=== PATIENT | male | born 1950 | race Caucasian/White ===

== ENCOUNTER 2020-11-28 23:44 | Emergency (ER) | payer MEDICARE, OTHER ==
[~2020-11-28] VITALS: Ht 182.9 cm; Wt 105.9 kg
[2020-11-29] MEDS ORDERED: MORPHINE SULFATE 4 MG/ML DISP.SYRIN. IV ONE
[2020-11-29] MEDS ORDERED: IV RINGERS SOLUTION,LACTATED 1,000 ML IV ONE
[2020-11-29] MEDS ORDERED: ONDANSETRON PF 4 MG/2 ML VIAL. IVP ONE
--- NOTE | 2020-11-29 00:12 | PHYS DOC ---
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 States has been going on approximately 2 days. Also endorses some generalized abdominal discomfort, 5 out of 10, dull and achy in nature as well as chronic back pain, 6 out of 10, dull and achy in nature. States has had a decreased appetite over the last couple of days. States he only makes a tiny bit of urine but has having normal bowel movement today with no blood in it. Denies any recent traumas, travels, known ill contacts, fevers, other Covid/flu/cold symptoms. Review of Systems Review of Systems Review of systems otherwise unremarkable except noted in HPI Physical Exam Physical Exam Constitutional: Well developed, well nourished, respiratory distress, appears ill. [] HENT: Normocephalic, atraumatic, oropharynx dry no oral exudates, nose normal. [] Eyes: PERRLA, conjunctiva normal, no discharge. [] Neck: Normal range of motion, no tenderness, Cardiovascular: Sinus bradycardia Lungs & Thorax: Bilateral, global scattered mild rhonchi with overall decreased air movement, mild end expiratory wheeze and increased work of breathing Abdomen: soft, generalized tenderness, no masses, no pulsatile masses. [] Skin: Warm, dry, no erythema, no rash. [] Back: no CVA tenderness. [] Extremities: Patient with right BKA. Neurologic: Alert and oriented X 3, no focal deficits noted. [] Psychologic: Affect normal, judgement normal, mood normal. [] EKG EKG EKG with a rate of 80, QRS of 126, QTc of 451, irregular rhythm (patient on ICD,), no STEMI [] Radiology/Procedures Radiology/Procedures [CT Chest: Left chest wall pacer/AICD. Right chest wall catheter device extending into the SVC. The heart is enlarged. Small pericardial effusion. Extensive calcific atherosclerosis with severe coronary artery involvement as well as relatively extensive involvement of the partially imaged carotid arteries. The thoracic aorta is nonaneurysmal. Main pulmonary artery caliber is within the broad range of normal at 3 cm. Aortic and mitral annular mineralization. Small amount of gas within the right atrium is favored iatrogenic. No definitive pathologically enlarged mediastinal or hilar lymph nodes noting motion and the lack of contrast. No apparent esophageal abnormality but not fully assessed. Near complete collapse of the left lung with only a small amount of aerated lung at the anterior left upper lobe. Large left pleural effusion measuring simple density. Small pleural effusion on the right the density of which is difficult to assess. Mild atelectasis on the right. Limited assessment for a mild superimposed infiltrate. A few punctate pulmonary nodules on the right, image 57 series 2, measuring no more than 3 mm. No axillary lymphadenopathy. Periclavicular lymph nodes are subcentimeter in size. Left more so than right mild gynecomastia. Body wall edema. Chronic height loss at T3 with fusion across the T3-T4 disc space. Diffuse idiopathic skeletal hyperostosis. Multilevel spondylosis to include the partially imaged cervical spine. Scattered osseous neural foraminal stenosis appearing greatest on the left at C5-C6 and on the left more so than right at T3-T4. Limited assessment for central canal stenosis. CT Abdomen/Pelvis: Cirrhotic liver. Limited assessment for a hepatic mass. Gallstone filled gallbladder. Assessment for acute cholecystitis. No overt ductal dilatation. Fatty infiltration of the pancreas. No localized peripancreatic edema or fluid collection. Mild splenomegaly. No adrenal gland mass. Incompletely characterized exophytic focus off the inferior pole the right kidney measuring up to approximately 2.6 cm. The internal density is around 13 Hounsfield units suggestive of a cyst. No hydronephrosis. Circumferential wall thickening of the urinary bladder with mild haziness of the pericystic fat. The prostate measures 4.1 cm transverse. Moderate degree of constipation. Normal appendix. Moderate distention of the stomach. No gastric wall emphysema. Long segment mild dilatation of small bowel but there is no transitioning to collapse to confirm a distal obstruction. Limited assessment for wall thickening due to motion but none is readily apparent. Extensive calcific atherosclerosis. Nonaneurysmal aorta. No pathologically enlarged lymph nodes. Body wall edema and mild scattered fatty edema within the abdomen and pelvis. No pneumoperitoneum. There appears to be stool extending along the gluteal cleft and approaching the posterior wall of the anus but no fistula is identified. Soft tissue prominence along the dorsal aspect of the proximal left femur without a well delineated ulcer or fluid collection. Heterogeneous osseous attenuation. No focally aggressive lesion. Chronic appearing endplate cystic change with surrounding sclerosis greatest at L2-L3 and L3-L4. Osseous neural foraminal stenosis greatest on the left at L5-S1. Limited assessment for central canal stenosis. IMPRESSION: CT Chest: 1. Near complete collapse of the left lung with only a very small portion of the left upper lobe remaining aerated. Large pleural effusion on the left. No centrally obstructing mass is apparent to account for the collapse. 2. Small pleural effusion on the right with overlying volume loss. Limited assessment for a superimposed infiltrate given motion. 3. Enlarged heart and extensive calcific atherosclerosis to include severe coronary artery involvement. 4. Additional chronic observations as above. CT Abdomen/Pelvis: 1. Gallstone filled gallbladder. Limited assessment for associated cholecystitis due to extensive motion. Correlate for right upper quadrant pain. 2. Mild long segment dilatation of small bowel and moderate distention of the stomach but there is no transitioning to collapse to suggest this is from obstruction. No pneumatosis or perforation. Moderate constipation. 3. Cirrhotic liver. Mild splenomegaly. 4. Stool seen along a portion of the gluteal cleft which extends towards the dorsal margin of the anus. This is favored secondary to incontinence but recommend correlation with direct inspection to exclude a cutaneous fistula. 5. Body wall edema typical of a volume overload state. 6. Nonspecific circumferential wall thickening of the urinary bladder. This could be chronic but consider correlation with urinalysis to exclude cystitis. 7. Additional chronic observations as above.] Heart Score C/O Chest Pain: No Risk Factors: Risk Factors: DM, Current or recent (<one month) smoker, HTN, HLP, family history of CAD, obesity. Risk Scores: Risk Factors: DM, Current or recent (<one month) smoker, HTN, HLP, family history of CAD, obesity. Course & Med Decision Making Course & Med Decision Making Patient is a 70-year-old male who presents with shortness of breath for 2 days. Patient is DNR and confirmed in the presence of 2 emergency department nursing staff. Patient states he does not want chest compressions, shocks or endotrache al tube. States he is okay with oxygen and basic medications. Vital signs notable for sinus bradycardia, tachypnea, hypoxia on room air placed on simple mask at 10 L to get greater than 90% oxygen saturation. 2 peripheral IVs placed. Light hydration with lactated Ringer's at 50 begun. Given breathing treatment and steroids. EKG noted above with no STEMI. Blood gas with a pH of 3.96, PO2 of 46, bicarb of 29 and a lactate of 1.4. Laboratory analysis notable for leukocytosis and significantly elevated BNP. Patient makes no urine, so diuretic therapy not useful. Imaging noted above for collapse of the left lung with a pleural effusion. Discussed all findings with patient and offered a left-sided chest tube/thoracentesis. Patient stated again, I am DNR I do not want chest compressions, shocks, breathing tubes or a chest tube. Advised patient that his discomfort and trouble breathing would probably continue while that is there. Also discussed the gallstones he has and need for ultrasound and possible cho lecystectomy but patient stated he did not want any surgery. Discussed the risks of this as this could cause serious illness and infection and could lead to . Patient stated he did not want surgery. Patient declined chest tube. Advised that he would need some antibiotics, as it appears he could have an infection somewhere given his white count and will need his dialysis tomorrow and recommended admission to [place]. Patient verbalized understanding and agreed with plan of transfer and admission. [] Dragon Disclaimer Dragon Disclaimer This electronic medical record was generated, in whole or in part, using a voice recognition dictation system. Departure Departure: Impression: Primary Impression: Shortness of breath Additional Impressions: Wheezing Abdominal pain Nausea Pneumothorax Pleural effusion Cholelithiasis Dialysis patient Disposition: 02 SHORT TERM [facility] Admitting Physician: Other Referrals: YRN CROSS MD (PCP) Problem Qualifiers KERA ABDALLA MD Nov 29, 2020 00:12
[2020-11-29] MEDS ORDERED: IPRATRPIUM/ALBUTEROL 0.5/2.5MG 3 ML NEBU. NEB ONE (00:15)
[2020-11-29] MEDS ORDERED: DEXAMETHASONE SOD PHOS 10 MG/ML VIAL. IV ONE (00:15)
[2020-11-29 00:27] LABS: BASO # 0.1 x10^3/uL (0.0-0.2); BASO % 1 % (0-3); EOS # 0.1 x10^3/uL (0.0-0.7); EOS % 0 % (0-3); HEMATOCRIT 25.8 % (39.0-53.0); HEMOGLOBIN 8.3 g/dL (13.0-17.5); LYMPH # 0.6 x10^3/uL (1.0-4.8); LYMPH % 2 % (24-48); MEAN CORPUSCULAR HEMOGLOBIN 31 pg (25-35); MEAN CORPUSCULAR HGB CONC 32 g/dL (31-37); MEAN CORPUSCULAR VOLUME 96 fL (79-100); MONO # 2.2 x10^3/uL (0.0-1.1); MONO % 8 % (0-9); NEUT # 23.1 x10^3uL (1.8-7.7); NEUT % 88 % (31-73); PLATELET COUNT 336 x10^3/uL (140-400); RED BLOOD COUNT 2.69 x10^6/uL (4.30-5.70); RED CELL DISTRIBUTION WIDTH 15.6 % (11.5-14.5); WHITE BLOOD COUNT 26.1 x10^3/uL (4.0-11.0)
[2020-11-29 00:35] LABS: CALCIUM 9.4 mg/dL (8.5-10.1); CREATININE 3.4 mg/dL (0.7-1.3); GFR 17.9; POTASSIUM 3.7 mmol/L (3.5-5.1)
[2020-11-29 00:44] LABS: % BANDS 5 % (0-9); % LYMPHS 4 % (24-48); % MONOS 6 % (0-10); % SEGS 85 % (35-66); PLT ESTIMATE ADEQUATE (ADEQUATE)
[2020-11-29 00:47] LABS: ALBUMIN 2.3 g/dL (3.4-5.0); ALBUMIN/GLOBULIN RATIO 0.6 (1.0-1.7); MAGNESIUM 1.8 mg/dL (1.8-2.4); TOTAL BILIRUBIN 0.8 mg/dL (0.2-1.0); TOTAL PROTEIN 6.2 g/dL (6.4-8.2)
--- NOTE | 2020-11-29 00:59 | EKG ---
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
--- NOTE | 2020-11-29 01:33 | RAD ---
Study: CT chest, abdomen and pelvis without contrast INDICATION: Shortness of breath. Abdominal pain. COMPARISON: CT abdomen/pelvis 08/25/2017 TECHNIQUE: Helical CT imaging performed of the chest, abdomen and pelvis performed without the use of intravenous contrast. Coronal and sagittal reformats were obtained. One or more of the following individualized dose reduction techniques were utilized for this examinat ion: 1. Automated exposure control 2. Adjustment of the mA and/or kV according to patient size 3. Use of iterative reconstruction technique. FINDINGS: CT Chest: Left chest wall pacer/AICD. Right chest wall catheter device extending into the SVC. The heart is enl arged. Small pericardial effusion. Extensive calcific atherosclerosis with severe coronary artery inv olvement as well as relatively extensive involvement of the partially imaged carotid arteries. The th oracic aorta is nonaneurysmal. Main pulmonary artery caliber is within the broad range of normal at 3 cm. Aortic and mitral annular mineralization. Small amount of gas within the right atrium is favored iatrogenic. No definitive pathologically enlarged mediastinal or hilar lymph nodes noting motion and the lack of contrast. No apparent esophageal abnormality but not fully assessed. Near complete collapse of the left lung with only a small amount of aerated lung at the anterior left upper lobe. Large left pleural effusion measuring simple density. Small pleural effusion on the righ t the density of which is difficult to assess. Mild atelectasis on the right. Limited assessment for a mild superimposed infiltrate. A few punctate pulmonary nodules on the right, image 57 series 2, lexie suring no more than 3 mm. No axillary lymphadenopathy. Periclavicular lymph nodes are subcentimeter in size. Left more so than right mild gynecomastia. Body wall edema. Chronic height loss at T3 with fusion across the T3-T4 disc space. Diffuse idiopathic skeletal hypero stosis. Multilevel spondylosis to include the partially imaged cervical spine. Scattered osseous neur al foraminal stenosis appearing greatest on the left at C5-C6 and on the left more so than right at T 3-T4. Limited assessment for central canal stenosis. CT Abdomen/Pelvis: Cirrhotic liver. Limited assessment for a hepatic mass. Gallstone filled gallbladder. Assessment for acute cholecystitis. No overt ductal dilatation. Fatty infiltration of the pancreas. No localized peripancreatic edema or fluid collection. Mild splen omegaly. No adrenal gland mass. Incompletely characterized exophytic focus off the inferior pole the right kidney measuring up to sena roximately 2.6 cm. The internal density is around 13 Hounsfield units suggestive of a cyst. No hydron ephrosis. Circumferential wall thickening of the urinary bladder with mild haziness of the pericystic fat. The prostate measures 4.1 cm transverse. Moderate degree of constipation. Normal appendix. Moderate distention of the stomach. No gastric wall emphysema. Long segment mild dilatation of small bowel but there is no transitioning to collapse to confirm a distal obstruction. Limited assessment for wall thickening due to motion but none is readil y apparent. Extensive calcific atherosclerosis. Nonaneurysmal aorta. No pathologically enlarged lymph nodes. Body wall edema and mild scattered fatty edema within the abdomen and pelvis. No pneumoperitoneum. There appears to be stool extending along the gluteal cleft and approaching the posterior wall of the anus but no fistula is identified. Soft tissue prominence along the dorsal aspect of the proximal left fem ur without a well delineated ulcer or fluid collection. Heterogeneous osseous attenuation. No focally aggressive lesion. Chronic appearing endplate cystic ch rut with surrounding sclerosis greatest at L2-L3 and L3-L4. Osseous neural foraminal stenosis greate st on the left at L5-S1. Limited assessment for central canal stenosis. IMPRESSION: CT Chest: 1. Near complete collapse of the left lung with only a very small portion of the left upper lobe rem aining aerated. Large pleural effusion on the left. No centrally obstructing mass is apparent to acco unt for the collapse. 2. Small pleural effusion on the right with overlying volume loss. Limited assessment for a superimp osed infiltrate given motion. 3. Enlarged heart and extensive calcific atherosclerosis to include severe coronary artery involveme nt. 4. Additional chronic observations as above. CT Abdomen/Pelvis: 1. Gallstone filled gallbladder. Limited assessment for associated cholecystitis due to extensive mo tion. Correlate for right upper quadrant pain. 2. Mild long segment dilatation of small bowel and moderate distention of the stomach but there is n o transitioning to collapse to suggest this is from obstruction. No pneumatosis or perforation. Moder ate constipation. 3. Cirrhotic liver. Mild splenomegaly. 4. Stool seen along a portion of the gluteal cleft which extends towards the dorsal margin of the an us. This is favored secondary to incontinence but recommend correlation with direct inspection to exc lude a cutaneous fistula. 5. Body wall edema typical of a volume overload state. 6. Nonspecific circumferential wall thickening of the urinary bladder. This could be chronic but con home care associate correlation with urinalysis to exclude cystitis. 7. Additional chronic observations as above. Electronically signed by: THERON CARROLL MD (11/29/2020 1:31 AM) [facility]
[2020-11-29 01:56] VITALS: BP 115/56
[2020-11-29] MEDS ORDERED: PIPERACILLIN/TAZOBACTAM 3.375 GM in IV NORMAL SALINE 50ML 50 ML IV ONE (02:00)
[2020-11-29] MEDS ORDERED: PIPERACILLIN/TAZOBACTAM 3.375 GM VIAL IV ONE (02:04)
[2020-11-29] MEDS ORDERED: IV NORMAL SALINE 50ML 50 ML ONE (02:04)
== END 2020-11-29 03:30 | disposition short-term general hospital (02) ==
LOC: ER 23:44
DX: K80.20 Calculus of gallbladder without cholecystitis without obstruction (principal); Z20.822 Contact with and (suspected) exposure to COVID-19; R06.02 Shortness of breath; R00.1 Bradycardia, unspecified; G89.29 Other chronic pain; R06.2 Wheezing; J93.9 Pneumothorax, unspecified; J90 Pleural effusion, not elsewhere classified; E11.9 Type 2 diabetes mellitus without complications; Z79.4 Long term (current) use of insulin; Z99.2 Dependence on renal dialysis
CPT/HCPCS: 36415; 71250; 74176; 80053; 82803; 83605; 83735; 83880; 84484; 85007; 85025; 85610; 85730; 93005; 94640; 96361; 96365; 96375; 99285; C9803; J1100; J2270; J2405; J2543; J7120; U0003; U0005

== ENCOUNTER 2020-12-12 11:34 | Emergency (ER) | payer MEDICARE, OTHER ==
[~2020-12-12] VITALS: Ht 182.9 cm; Wt 108.5 kg
[2020-12-12 12:10] LABS: BASO # 0.1 x10^3/uL (0.0-0.2); BASO % 1 % (0-3); EOS # 0.5 x10^3/uL (0.0-0.7); EOS % 2 % (0-3); HEMOGLOBIN 9.8 g/dL (13.0-17.5); LYMPH # 0.9 x10^3/uL (1.0-4.8); LYMPH % 4 % (24-48); MEAN CORPUSCULAR HEMOGLOBIN 30 pg (25-35); MEAN CORPUSCULAR HGB CONC 32 g/dL (31-37); MEAN CORPUSCULAR VOLUME 96 fL (79-100); MONO # 1.5 x10^3/uL (0.0-1.1); MONO % 6 % (0-9); NEUT # 21.9 x10^3uL (1.8-7.7); NEUT % 88 % (31-73); PLATELET COUNT 405 x10^3/uL (140-400); RED BLOOD COUNT 3.23 x10^6/uL (4.30-5.70); RED CELL DISTRIBUTION WIDTH 16.4 % (11.5-14.5); WHITE BLOOD COUNT 24.9 x10^3/uL (4.0-11.0)
[2020-12-12 12:20] LABS: ANION GAP 7 (6-14); BLOOD UREA NITROGEN 24 mg/dL (8-26); BUN/CREATININE RATIO 6 (6-20); CALCIUM 9.6 mg/dL (8.5-10.1); CARBON DIOXIDE 31 mmol/L (21-32); CHLORIDE 97 mmol/L (98-107); CREATININE 4.1 mg/dL (0.7-1.3); GFR 14.5; GLUCOSE 117 mg/dL (70-99); POTASSIUM 4.3 mmol/L (3.5-5.1); SODIUM 135 mmol/L (136-145)
[2020-12-12 12:33] LABS: ALBUMIN 2.1 g/dL (3.4-5.0); ALBUMIN/GLOBULIN RATIO 0.5 (1.0-1.7); ALK PHOS 165 U/L (46-116); ALT (SGPT) 13 U/L (16-63); AST (SGOT) 13 U/L (15-37); TOTAL BILIRUBIN 0.5 mg/dL (0.2-1.0); TOTAL PROTEIN 6.3 g/dL (6.4-8.2)
--- NOTE | 2020-12-12 12:41 | RAD ---
Single AP view of the chest. Comparison: None. Indication: Shortness of breath Findings: Left subclavian pacemaker is identified with leads overlying right atrium and ventricle. Right internet marketer al jugular tunneled hemodialysis catheter seen with tip in the mid SVC. The heart is markedly enlarge d. Pneumothorax. Probable lateral left basilar effusion. There is pulmonary vascular congestion. Impression: 1. Findings suggest CHF with probable left basilar effusion which is small in size. Electronically signed by: Isaac Green MD (12/12/2020 12:38 PM) [id number]
[2020-12-12] MEDS ORDERED: ONDANSETRON PF 4 MG/2 ML VIAL. IVP ONE (13:00)
[2020-12-12] MEDS ORDERED: MORPHINE SULFATE 4 MG/ML DISP.SYRIN. IV ONE (13:00)
--- NOTE | 2020-12-12 13:02 | EKG ---
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
[2020-12-12 13:05] LABS: % BANDS 2 % (0-9); % EOS 1 % (0-5); % LYMPHS 6 % (24-48); % MONOS 6 % (0-10); % MYELOS 1 % (0-0); % SEGS 84 % (35-66); PLT ESTIMATE ADEQUATE (ADEQUATE)
--- NOTE | 2020-12-12 13:16 | PHYS DOC ---
Past History Past Medical History: COPD, Diabetes, Renal Failure Additional Past Medical Histor: defibrillator Additional Past Surgical Histo: amputee Alcohol Use: None General Adult EDM: Chief Complaint: SHORTNESS OF BREATH HPI: HPI: Patient is a 70-year-old male who presents with shortness of breath. Patient states he was at dialysis when he became short of breath. EMS reports patient had dropped down to 80% while at dialysis. Patient has been satting 97% on room air while in the emergency room. Patient was recently admitted to [place] for CHF. Patient has a history of CHF, COPD. Patient is on 2 L NC at home. Patient denying shortness, chest pain. Review of Systems: Review of Systems: Constitutional: Denies fever or chills Eyes: Denies change in visual acuity HENT: Denies nasal congestion or sore throat Respiratory: Denies cough, reports shortness of breath Cardiovascular: Denies chest pain or edema GI: Denies abdominal pain, nausea, vomiting, bloody stools or diarrhea : Denies dysuria Musculoskeletal: Reports chronic back pain denies or joint pain Integument: Denies rash Neurologic: Denies headache, focal weakness or sensory changes Endocrine: Denies polyuria or polydipsia Lymphatic: Denies swollen glands Psychiatric: Denies depression or anxiety Current Medications: Current Meds: Current Medications Medications (Trade) Dose Ordered Sig/Kavya Start Time Stop Time Status Last Admin Dose Admin Morphine Sulfate (Morphine 4mg Syringe) 4 mg 1X ONCE 12/12/20 13:00 12/12/20 13:02 DC Ondansetron HCl (Zofran) 4 mg 1X ONCE 12/12/20 13:00 12/12/20 13:02 DC Allergies: Allergies: Allergies Coded Allergies Type Severity Reaction Last Updated Verified No Known Drug Allergies 11/29/20 No Physical Exam: PE: Constitutional: Well developed, well nourished, no acute distress, non-toxic appearance. [] HENT: Normocephalic, atraumatic, bilateral external ears normal, oropharynx moist, no oral exudates, nose normal. [] Eyes: PERRLA, EOMI, conjunctiva normal, no discharge. [] Neck: Normal range of motion, no tenderness, supple, no stridor. [] Cardiovascular: Heart rate 88 bpm, irregular rhythm(ICD) Lungs & Thorax: Bilateral breath sounds clear to auscultation [] Abdomen: Bowel sounds normal, soft, no tenderness, no masses, no pulsatile masses. [] Skin: Warm, dry, no erythema, no rash. [] Back: No tenderness, no CVA tenderness. [] Extremities: No tenderness, no cyanosis, no clubbing, ROM intact, no edema. [] Neurologic: Alert and oriented X 3, normal motor function, normal sensory function, no focal deficits noted. [] Psychologic: Affect normal, judgement normal, mood normal. [] Current Patient Data: Labs: Laboratory Tests Test 12/12/20 11:50 White Blood Count 24.9 x10^3/uL (4.0-11.0) H Red Blood Count 3.23 x10^6/uL (4.30-5.70) L Hemoglobin 9.8 g/dL (13.0-17.5) L Hematocrit 31.0 % (39.0-53.0) L Mean Corpuscular Volume 96 fL (79-100) Mean Corpuscular Hemoglobin 30 pg (25-35) Mean Corpuscular Hemoglobin Concent 32 g/dL (31-37) Red Cell Distribution Width 16.4 % (11.5-14.5) H Platelet Count 405 x10^3/uL (140-400) H Neutrophils (%) (Auto) 88 % (31-73) H Lymphocytes (%) (Auto) 4 % (24-48) L Monocytes (%) (Auto) 6 % (0-9) Eosinophils (%) (Auto) 2 % (0-3) Basophils (%) (Auto) 1 % (0-3) Neutrophils # (Auto) 21.9 x10^3uL (1.8-7.7) H Lymphocytes # (Auto) 0.9 x10^3/uL (1.0-4.8) L Monocytes # (Auto) 1.5 x10^3/uL (0.0-1.1) H Eosinophils # (Auto) 0.5 x10^3/uL (0.0-0.7) Basophils # (Auto) 0.1 x10^3/uL (0.0-0.2) Segmented Neutrophils % 84 % (35-66) H Band Neutrophils % 2 % (0-9) Lymphocytes % 6 % (24-48) L Monocytes % 6 % (0-10) Eosinophils % 1 % (0-5) Myelocytes % 1 % (0-0) H Platelet Estimate Adequate (ADEQUATE) Sodium Level 135 mmol/L (136-145) L Potassium Level 4.3 mmol/L (3.5-5.1) Chloride Level 97 mmol/L (98-107) L Carbon Dioxide Level 31 mmol/L (21-32) Anion Gap 7 (6-14) Blood Urea Nitrogen 24 mg/dL (8-26) Creatinine 4.1 mg/dL (0.7-1.3) H Estimated GFR (Cockcroft-Gault) 14.5 BUN/Creatinine Ratio 6 (6-20) Glucose Level 117 mg/dL (70-99) H Calcium Level 9.6 mg/dL (8.5-10.1) Total Bilirubin 0.5 mg/dL (0.2-1.0) Aspartate Amino Transferase (AST) 13 U/L (15-37) L Alanine Aminotransferase (ALT) 13 U/L (16-63) L Alkaline Phosphatase 165 U/L (46-116) H Troponin I Quantitative < 0.017 ng/mL (0-0.055) HX-Hds-D-Type Natriuretic Peptide > 21805 pg/mL (0-124) H Total Protein 6.3 g/dL (6.4-8.2) L Albumin 2.1 g/dL (3.4-5.0) L Albumin/Globulin Ratio 0.5 (1.0-1.7) L Vital Signs: Vital Signs Date Time Temp Pulse Resp B/P (MAP) Pulse Ox O2 Delivery O2 Flow Rate FiO2 12/12/20 12:08 90 16 118/63 (81) 95 Room Air 12/12/20 11:43 97.7 EKG: EKG: [] Heart rate 88 bpm. QRS 128, QTc 476. Irregular rhythm (ICD) Radiology/Procedures: Radiology/Procedures: [] Single AP view of the chest. Comparison: None. Indication: Shortness of breath Findings: Left subclavian pacemaker is identified with leads overlying right atrium and ventricle. Right internal jugular tunneled hemodialysis catheter seen with tip in the mid SVC. The heart is markedly enlarged. Pneumothorax. Probable lateral left basilar effusion. There is pulmonary vascular congestion. Impression: 1. Findings suggest CHF with probable left basilar effusion which is small in size. Electronically signed by: Isaac Green MD (12/12/2020 12:38 PM) [id number] Heart Score: C/O Chest Pain: No Risk Factors: Risk Factors: DM, Current or recent (<one month) smoker, HTN, HLP, family history of CAD, obesity. Risk Scores: Score 0 - 3: 2.5% MACE over next 6 weeks - Discharge Home Score 4 - 6: 20.3% MACE over next 6 weeks - Admit for Clinical Observation Score 7 - 10: 72.7% MACE over next 6 weeks - Early Invasive Strategies Course & Med Decision Making: Course & Med Decision Making Pertinent Labs and Imaging studies reviewed. (See chart for details) [] Patient is brought in by EMS for hypoxia. Patient was at dialysis when his O2 dropped to 80%. EMS was called and patient has been satting 90s on room air while in the emergency room. Patient states he wears 2 L nasal cannula at home. Chest x-ray findings suggest CHF with probable left basilar effusion which is small in size. Patient's white count is 24.9, BNP 35,000. Patient has a history of CHF, kidney failure and COPD. Patient does not produce urine. Advised patient that he needed to be admitted to the hospital for further management and to complete dialysis. Patient requesting transfer to [facility]. [facility] unable to admit patient due to no telemetry beds. Patient is okay with being transferred to [facility]. Spoke with Dr. Rojas who agreed to admit patient. Patient be admitted for CHF exacerbation, shortness of breath. Emily Disclaimer: Emily Disclaimer: This electronic medical record was generated, in whole or in part, using a voice recognition dictation system. Departure Departure: Impression: Primary Impression: Shortness of breath Disposition: 02 SHORT TERM [facility]OSPITAL Condition: STABLE Referrals: YRN CROSS MD (PCP) SUMANTH REGAN APRN December 12, 2020 13:16
[2020-12-12 17:15] VITALS: BP 98/55
== END 2020-12-12 17:18 | disposition short-term general hospital (02) ==
LOC: ER 11:34
DX: R06.02 Shortness of breath (principal); G89.29 Other chronic pain; J44.9 Chronic obstructive pulmonary disease, unspecified; N19 Unspecified kidney failure; E11.9 Type 2 diabetes mellitus without complications
CPT/HCPCS: 36415; 71045; 80053; 83880; 84484; 85007; 85025; 93005; 96374; 96375; 99285; J2270; J2405

== ENCOUNTER 2020-12-22 21:02 | Emergency (ER) | payer MEDICARE, OTHER ==
[~2020-12-22] VITALS: Ht 182.9 cm; Wt 109.0 kg
--- NOTE | 2020-12-22 21:06 | PHYS DOC ---
Past History Past Medical History: COPD, Diabetes, Renal Failure Additional Past Medical Histor: defibrillator Additional Past Surgical Histo: amputee Alcohol Use: None Adult General HPI HPI Patient is a 70-year-old male presenting for shortness of breath via EMS. Patient was sound asleep when he was found to be at 74% oxygen on his typical 2 L nasal cannula which concerned [facility] staff. EMS was subsequently contacted and on arrival, patient was found to be at 82% on 4 L nasal cannula. Patient was subsequently increased to 6 L oxygen via nasal cannula with improvement of hypoxia and transported to our facility for evaluation. Patient has complicated medical history, was recently treated for a left-sided pneumothorax that involved chest tube approximately 2 weeks ago. He also has extensive diabetes and wound care issues with active infections ongoing to di gits, finger and buttock region. Patient also has end-stage renal disease on hemodialysis, states he goes Wednesdays and Fridays. He attended his session yesterday but reports session was cut short due to buttock pain. Review of Systems Review of Systems Fourteen body systems of review of systems have been reviewed. See HPI for pertinent positives and negative responses, other bui all other systems are negative, non-pertinent or non-contributory Allergies Allergies Allergies Coded Allergies Type Severity Reaction Last Updated Verified No Known Drug Allergies 11/29/20 No Physical Exam Physical Exam Constitutional: Obese, no acute distress, poor hygiene overall HENT: Normocephalic, atraumatic, bilateral external ears normal, oropharynx dry with poor dentition, no oral exudates, nose normal. Eyes: PERRLA, EOMI, conjunctiva normal, no discharge. Abnormality to right eye that is chronic, he is blind in right eye Neck: Normal range of motion, no tenderness, supple, no stridor. Cardiovascular: Heart rate regular, sinus rhythm, pacemaker defibrillator in satisfactory position in left upper chest, HD cath present on upper right chest Lungs & Thorax: No respiratory distress or increased work of breathing, no accessory muscle use, patient initially on 4 L oxygen nasal cannula on arrival saturating 100%, this was dropped back down to 2 L oxygen via nasal cannula which is been his baseline since hospital discharge maintaining saturations greater than 95% Abdomen: Bowel sounds normal, soft, no tenderness, no masses, no pulsatile masses. 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 Extremities: No tenderness, no cyanosis, no clubbing, ROM intact, no edema. Right lower extremity BKA present and well-appearing. Left hand with prior amputations present to third, fourth, and fifth digits Neurologic: Alert and oriented X 3, grossly normal motor & sensory function, no focal deficits noted. Psychologic: Affect normal, judgement normal, mood normal. Has full capacity Current Patient Data Vital Signs Vital Signs Date Time Temp Pulse Resp B/P (MAP) Pulse Ox O2 Delivery O2 Flow Rate FiO2 12/22/20 21:20 97.6 59 22 118/42 (67) 100 Nasal Cannula 3.0 Vital Signs Date Time Temp Pulse Resp B/P (MAP) Pulse Ox O2 Delivery O2 Flow Rate FiO2 12/22/20 21:20 97.6 59 22 118/42 (67) 100 Nasal Cannula 3.0 Lab Results Laboratory Tests Test 12/22/20 21:23 White Blood Count 13.4 x10^3/uL Red Blood Count 3.21 x10^6/uL Hemoglobin 9.5 g/dL Hematocrit 30.7 % Mean Corpuscular Volume 96 fL Mean Corpuscular Hemoglobin 29 pg Mean Corpuscular Hemoglobin Concent 31 g/dL Red Cell Distribution Width 16.8 % Platelet Count 374 x10^3/uL Neutrophils (%) (Auto) 75 % Lymphocytes (%) (Auto) 10 % Monocytes (%) (Auto) 10 % Eosinophils (%) (Auto) 4 % Basophils (%) (Auto) 1 % Neutrophils # (Auto) 10.1 x10^3uL Lymphocytes # (Auto) 1.4 x10^3/uL Monocytes # (Auto) 1.3 x10^3/uL Eosinophils # (Auto) 0.5 x10^3/uL Basophils # (Auto) 0.1 x10^3/uL Segmented Neutrophils % 73 % Lymphocytes % 19 % Monocytes % 8 % Platelet Estimate Adequate Bedside Venous pH 7.24 Bedside Venous pCO2 81 mmHg Bedside Venous pO2 31 mmHg Venous Blood HCO3 34 mmol/L POC Venous O2 Saturation (Wili) 46 % Bedside FiO2 32 Sodium Level 136 mmol/L Potassium Level 4.2 mmol/L Chloride Level 99 mmol/L Carbon Dioxide Level 32 mmol/L Anion Gap 5 Blood Urea Nitrogen 23 mg/dL Creatinine 4.6 mg/dL Estimated GFR (Cockcroft-Gault) 12.7 BUN/Creatinine Ratio 5 Glucose Level 145 mg/dL Calcium Level 9.6 mg/dL Phosphorus Level 3.2 mg/dL Magnesium Level 2.1 mg/dL Total Bilirubin 0.4 mg/dL Aspartate Amino Transf (AST/SGOT) 37 U/L Alanine Aminotransferase (ALT/SGPT) 32 U/L Alkaline Phosphatase 242 U/L DB-Ice-V-Type Natriuretic Peptide [id number] pg/mL Total Protein 6.4 g/dL Albumin 2.1 g/dL Albumin/Globulin Ratio 0.5 EKG EKG EKG ordered and interpreted by myself at 2213 hrs. as ventricular paced rhythm at 52 bpm, prolonged QRS at 126 otherwise unremarkable intervals, left axis deviation, no STEMI Radiology/Procedures Radiology/Procedures XR CHEST 1V INDICATION: Reason: SHORTNESS OF BREATH.HX FLUID ON LUNGS / Spl. Instructions: / History: . COMPARISON STUDY: Radiograph 12/12/2020. FINDINGS: Life Support Devices: Stable right IJ dual-lumen catheter. Left pectoral pacemaker. Lungs: Low lung volume. Near-complete opacification of the left hemithorax. Indistinct pulmonary vasculature. Pleura: Large left pleural effusion. Small right pleural effusion. Heart and Mediastinum: Stable cardiomediastinal silhouette and great vessels. IMPRESSION: 1. Near complete opacification of left hemithorax, probably large pleural effusion. Small right effusion is also present. 2. Pulmonary interstitial edema. Electronically signed by: David Chapin MD (12/22/2020 10:01 PM) [facility] Heart Score C/O Chest Pain: No HEART Score for Chest Pain: HEART Score for Chest Pain Response (Comments) Value History Moderately Suspicious 1 ECG Normal 0 Age > 65 2 Risk Factors >3 Risk Factors or Hx CAD 2 Troponin < Normal Limit 0 Total 5 Risk Factors: Risk Factors: DM, Current or recent (<one month) smoker, HTN, HLP, family history of CAD, obesity. Risk Scores: Risk Factors: DM, Current or recent (<one month) smoker, HTN, HLP, family history of CAD, obesity. Course & Med Decision Making Course & Med Decision Making Vital signs stable on arrival, patient's oxygen saturation 100% on 6 L via nasal cannula. HPI and physical exam concerning for potential pneumothorax versus recurrent left-sided pleural effusion Patient complaining of chronic sacral pain and lower back pain otherwise states he is been asymptomatic. Patient's oxygen titrated back down to typical 2 L. Comprehensive ER work-up obtained concerning for large left-sided pleural eff usion. He is currently being treated for numerous skin infections with p.o. Augmentin. I discussed with him and present need for repeat pulmonology evaluation. I discussed potential of performing a thoracentesis and/or insertion of chest tube while in ER setting but joint decision was made to defer to specialist at transferring facility. I discussed potential of reinsertion of chest tube versus other more definitive tubes/pigtail catheters that might be placed if this indeed is a recurrent left-sided pleural effusion to avoid risk of recurrent chest tube placements etc. I contacted hospitalist at [facility] and discussed case at length, he agreed need for hospital admission and accepted patient transfer under his care I updated both patient and on proposed plan of care that included hospital transfer and they were amenable. All questions and concerns addressed prior to ER transfer via EMS in stable condition Critical Care Time This patient required critical care. Due to the fact that the patient required a significant amount of one on one physician - patient contact time, ordering and review of studies, arranging urgent treatment with development of a management plan, evaluation of patients response to treatment with frequent reassessments, and discussions with other providers this patient required 40 minutes of critical care time. Critical care time was indicated due to the inherent instability and/or potential for instability in this patient. The critical care time that is allocated to this patient is above and beyond any time spent on any other billable procedures performed on this patient. Dragon Disclaimer Dragon Disclaimer This electronic medical record was generated, in whole or in part, using a voice recognition dictation system. Departure Departure: Impression: Primary Impression: Recurrent left pleural effusion Additional Impressions: ESRD (end stage renal disease) on dialysis Skin infection Type 2 diabetes mellitus DNR (do not resuscitate) Disposition: 02 [facility] ([facility]) Admitting Physician: Other (DR PARIKH) Condition: STABLE Referrals: YRN CROSS MD (PCP) Problem Qualifiers SU FLEMING DO December 22, 2020 21:06
[2020-12-22 21:45] LABS: BASO # 0.1 x10^3/uL (0.0-0.2); BASO % 1 % (0-3); EOS # 0.5 x10^3/uL (0.0-0.7); EOS % 4 % (0-3); HEMATOCRIT 30.7 % (39.0-53.0); HEMOGLOBIN 9.5 g/dL (13.0-17.5); LYMPH # 1.4 x10^3/uL (1.0-4.8); LYMPH % 10 % (24-48); MEAN CORPUSCULAR HEMOGLOBIN 29 pg (25-35); MEAN CORPUSCULAR HGB CONC 31 g/dL (31-37); MEAN CORPUSCULAR VOLUME 96 fL (79-100); MONO # 1.3 x10^3/uL (0.0-1.1); MONO % 10 % (0-9); NEUT # 10.1 x10^3uL (1.8-7.7); NEUT % 75 % (31-73); PLATELET COUNT 374 x10^3/uL (140-400); RED BLOOD COUNT 3.21 x10^6/uL (4.30-5.70); RED CELL DISTRIBUTION WIDTH 16.8 % (11.5-14.5); WHITE BLOOD COUNT 13.4 x10^3/uL (4.0-11.0)
[2020-12-22 22:00] LABS: % LYMPHS 19 % (24-48); % MONOS 8 % (0-10); % SEGS 73 % (35-66); PLT ESTIMATE ADEQUATE (ADEQUATE)
[2020-12-22 22:01] LABS: CALCIUM 9.6 mg/dL (8.5-10.1); CREATININE 4.6 mg/dL (0.7-1.3); GFR 12.7; POTASSIUM 4.2 mmol/L (3.5-5.1)
[2020-12-22 22:03] LABS: MAGNESIUM 2.1 mg/dL (1.8-2.4); PHOSPHORUS 3.2 mg/dL (2.6-4.7)
--- NOTE | 2020-12-22 22:03 | RAD ---
XR CHEST 1V INDICATION: Reason: SHORTNESS OF BREATH.HX FLUID ON LUNGS / Spl. Instructions: / History: . COMPARISON STUDY: Radiograph 12/12/2020. FINDINGS: Life Support Devices: Stable right IJ dual-lumen catheter. Left pectoral pacemaker. Lungs: Low lung volume. Near-complete opacification of the left hemithorax. Indistinct pulmonary vasc ulature. Pleura: Large left pleural effusion. Small right pleural effusion. Heart and Mediastinum: Stable cardiomediastinal silhouette and great vessels. IMPRESSION: 1. Near complete opacification of left hemithorax, probably large pleural effusion. Small right effus ion is also present. 2. Pulmonary interstitial edema. Electronically signed by: David Chapin MD (12/22/2020 10:01 PM) [facility]
[2020-12-22 22:07] LABS: ALBUMIN 2.1 g/dL (3.4-5.0); ALBUMIN/GLOBULIN RATIO 0.5 (1.0-1.7); TOTAL BILIRUBIN 0.4 mg/dL (0.2-1.0); TOTAL PROTEIN 6.4 g/dL (6.4-8.2)
[2020-12-22 22:45] VITALS: BP 103/61
--- NOTE | 2020-12-23 01:53 | EKG ---
[address] [address] Test Date: 2020-12-22 Test Time: 22:11:28 Pat Name: ADRIEN SEARS Department: Room: Gender: M Data Collection Specialist: : [id number] Requested By: SU FLEMING Order Number: [id number] Reading MD: Measurements Intervals [place] Rate: 52 P: WI: QRS: -89 QRSD: 126 T: 96 QT: 478 QTc: 451 Interpretive Statements IRREGULAR RHYTHM, NO P-WAVE FOUND ABNORMAL LEFT AXIS DEVIATION LOW LIMB LEAD VOLTAGE NON SPECIFIC INTRAVENTRICULAR BLOCK QRS(T) CONTOUR ABNORMALITY CONSIDER ANTEROSEPTAL MYOCARDIAL DAMAGE CONSIDER HIGH LATERAL INFARCT ABNORMAL ECG RI6.02 No previous ECG available for comparison
== END 2020-12-22 23:21 | disposition short-term general hospital (02) ==
LOC: ER 21:02
DX: J90 Pleural effusion, not elsewhere classified (principal); E11.22 Type 2 diabetes mellitus with diabetic chronic kidney disease; N18.6 End stage renal disease; M54.5 Low back pain; J44.9 Chronic obstructive pulmonary disease, unspecified; Z66 Do not resuscitate
CPT/HCPCS: 36415; 71045; 80053; 82803; 83735; 83880; 84100; 85007; 85025; 93005; 99285-25